=== PATIENT | male | born 1995 | race Caucasian/White ===

== ENCOUNTER 2016-12-09 13:34 | Emergency (ER) | payer OTHER ==
[~2016-12-09] VITALS: Ht 182.9 cm; Wt 116.2 kg
[~2016-12-09 13:34] MED LIST: ALBU0.08 INH; ALBUAER2 INH; AZIT250T PO; FLVHFA110 INH; PRED20TA PO
[2016-12-09 13:42] VITALS: TEMP 36.7; Ht 182.9 cm; Wt 116.2 kg
[2016-12-09] MEDS ORDERED: PROPARACAINE HCL 0.5% OP SOLN 15 ML BTL OP STA (14:23)
[2016-12-09] MEDS ORDERED: SODIUM CHLORIDE 0.9% IRRIG 1,000 ML PLCT IR STA (15:15)
[2016-12-09] MEDS ORDERED: IBUPROFEN 800 MG TAB PO STA (15:16)
[2016-12-09 15:45] VITALS: BP 133/92; PULSE 50; O2SAT 99
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
== END 2016-12-09 16:00 | disposition left against medical advice (07) ==
LOC: C.EDB 13:35 → C.EDD 16:00
DX: T26.91XA Corrosion of right eye and adnexa, part unspecified, initial encounter (principal); T26.92XA Corrosion of left eye and adnexa, part unspecified, initial encounter; X58.XXXA Exposure to other specified factors, initial encounter